=== PATIENT | female | born 1995 | race Caucasian/White ===

== ENCOUNTER 2025-04-23 14:17 | Emergency (ER) | payer OTHER ==
[~2025-04-23] VITALS: Ht 162.6 cm; Wt 77.0 kg
[2025-04-23 14:25] VITALS: O2SAT 96
[2025-04-23 15:28] LABS: HEMATOCRIT. 34.8 % (36.0-48.0); HEMOGLOBIN. 11.8 g/dL (12.0-16.0); MEAN PLATELET VOLUME 9.5 fl (7.4-10.4); PLATELET 63 x1000/uL (130-400); RED BLOOD CELL COUNT 3.81 mill/uL (4.2-5.4); RED CELL DISTRIBUTION WIDTH 12.7 % (11.6-14.6)
[2025-04-23 15:38] LABS: INR 0.9
[2025-04-23 15:43] LABS: CREATININE 1.1 mg/dL (0.6-1.0); UREA NITROGEN BLOOD 16 mg/dL (9-23)
[2025-04-23 15:44] LABS: TROPONIN I HIGH SENSITIVITY 18 ng/L (3.0-34)
[2025-04-23 16:10] LABS: BAND% 2.0 % (1.0-6.0); LYMPHOCYTES % MANUAL 4.0 % (20.0-60.0); MONOCYTES % MANUAL 4.0 % (2.0-8.0); NEUTROPHILS % MANUAL 90.0 % (45.0-75.0); PLATELET ESTIMATE DECREASED
[2025-04-23 16:19] LABS: ASPARTATE AMINOTRANSFERASE 37 IU/L (<34); BILIRUBIN DIRECT 0.1 mg/dL (<=3.0); BILIRUBIN TOTAL 0.6 mg/dL (0.1-1.0); PROTEIN TOTAL 5.1 g/dL (6.0-8.3)
[2025-04-23 17:39] LABS: T4 FREE 1.29 ng/dL (0.89-1.76)
[2025-04-23 17:44] LABS: INFLUENZA TYPE A Presumptive Negative (Pres. Neg.)
[2025-04-23 17:45] LABS: INFLUENZA TYPE B Presumptive Negative (Pres. Neg.)
[2025-04-23 19:49] VITALS: BP 159/110; PULSE 94; RESP 11; TEMP 36.7; O2SAT 98
[2025-04-23 22:47] LABS: COLOR URINE DARK YELLOW (YELLOW)
[2025-04-23 22:48] LABS: CLARITY URINE CLOUDY (CLEAR); GLUCOSE URINE NEGATIVE (NEGATIVE); KETONES URINE TRACE (NEGATIVE); PH URINE 8.0 (4.5-8.0); PROTEIN URINE 4+ (NEGATIVE); SPECIFIC GRAVITY URINE 1.024 (1.005-1.030)
[2025-04-23 22:49] LABS: LEUKOCYTE ESTERASE URINE 1+ (NEGATIVE); NITRITE URINE POSITIVE (NEGATIVE); OCCULT BLOOD URINE 3+ (NEGATIVE); UROBILINOGEN URINE 1.0 E.U./dL (0.2-1.0)
[2025-04-23 23:00] LABS: BACTERIA URINE 4+; SQUAMOUS EPITHELIAL CELL URINE 1+ /lpf (RARE/1+)
[2025-04-23 23:02] LABS: RBC URINE 50-100 /hpf (0-2); WBC URINE 15-25 /hpf (0-2)
== END 2025-04-23 19:57 | disposition home or self-care (01) ==
LOC: ER 14:35
DX: O13.9 Gestational [pregnancy-induced] hypertension without significant proteinuria, unspecified trimester (principal); R06.02 Shortness of breath; R05.9 Cough, unspecified; R79.89 Other specified abnormal findings of blood chemistry; Z20.822 Contact with and (suspected) exposure to COVID-19; Z79.899 Other long term (current) drug therapy; Z3A.15 15 weeks gestation of pregnancy
CPT/HCPCS: 36415; 80048; 80076; 81003; 83880; 84439; 84443; 84484; 84702; 85025; 85379; 87426; 87804; 93005; 99284